=== PATIENT | male | born 1955 | race African-American/Black ===

== ENCOUNTER → 2019-06-22 | Outpatient (CLI) | payer OTHER ==
[~2019-06-22] MED LIST: REGADENOSON 0.4 MG/5 ML DISP.SYRIN. IV ONE
--- NOTE | 2019-06-22 12:31 | CARD ---
MR#: [id number] Date of Study: 06/22/2019 Ordering Physician: GLORY BROWN, Referring Physician: GLORY BROWN Tech: Mercy Cr RDCS APPROVED REPORT EXAM: Two-dimensional and M-mode echocardiogram with Doppler and color Doppler. Other Information Quality : Good Rhythm : PVC's INDICATION Hypertension/HCVD Pre-Op 2D DIMENSIONS RVDd2.7 (2.9-3.5cm)Left Atrium(2D)4.1 (1.6-4.0cm) IVSd1.2 (0.7-1.1cm)Aortic Root(2D)3.2 (2.0-3.7cm) LVDd6.0 (3.9-5.9cm)LVOT Diameter2.4 (1.8-2.4cm) PWd1.4 (0.7-1.1cm)LVDs3.4 (2.5-4.0cm) FS (%) 25.0 %SV131.6 ml LVEF(%)50.0 (>50%) Aortic Valve AoV Peak Faizan.141.0cm/sAoV VTI25.9cm AO Peak GR.8.0mmHgLVOT Peak Faizan.97.7cm/s AO Mean GR.4mmHgAVA (VMAX)3.07cm2 ELI (VTI)3.60cm2 Mitral Valve MV E Ihbwrvjq17.2cm/sMV DECEL SVEB066lk MV A Vvtuuabc147.6cm/sE/A Ratio0.7 Tricuspid Valve TR P. Polulyrf485sh/sRAP KHXBOZMW6bwCf TR Peak Gr.31muAtDOZX40phGd Pulmonary Vein S1 Pmfjmafl58.7cm/sD2 Afaqwgtk54.0cm/s LEFT VENTRICLE The Left Ventricle is mildly dilated. There is moderate concentric left ventricular hypertrophy. Left ventricle systolic function is low normal. The Ejection Fraction is 50%. Septal motion consistent wi th conduction abnormality. The lateral wall is mildly hypokinetic. Transmitral Doppler flow pattern i s Grade I-abnormal relaxation pattern. RIGHT VENTRICLE The right ventricle is normal size. The right ventricular systolic function is normal. ATRIA The left atrium is mildly dilated. The right atrium is mildly dilated. The atrial septum is aneurysma l but no shunting is noted. AORTIC VALVE The aortic valve is calcified but opens well. Doppler and Color Flow revealed no significant aortic r egurgitation. There is no significant aortic valvular stenosis. MITRAL VALVE The mitral valve is calcified but opens well. There is no evidence of mitral valve prolapse. There is no mitral valve stenosis. Doppler and Color-flow revealed trace mitral regurgitation. TRICUSPID VALVE The tricuspid valve is normal in structure and function. Doppler and Color Flow revealed trace tricus pid regurgitation. The PA pressure was estimated at 29 mmHg. There is no tricuspid valve stenosis. PULMONIC VALVE The pulmonary valve is normal in structure and function. Doppler and Color Flow revealed mild pulmoni c valvular regurgitation. There is no pulmonic valvular stenosis. GREAT VESSELS The aortic root is normal in size. The ascending aorta is normal in size. The IVC is normal in size a nd collapses >50% with inspiration. PERICARDIAL EFFUSION There is no evidence of significant pericardial effusion. Critical Notification Critical Value: No <Conclusion> There is moderate concentric left ventricular hypertrophy. Left ventricle systolic function is low normal. The Ejection Fraction is 50%. Septal motion consistent with conduction abnormality. The lateral wall is mildly hypokinetic. Signed by : Jovan Powers, Electronically Approved : 06/22/2019 12:30:58
--- NOTE | 2019-06-22 15:01 | RAD ---
MR#: [id number] Date of Study: 06/22/2019 Ordering Physician: GLORY BROWN, Referring Physician: TOBIN DEL RIO Tech: RT Marge (R) (N) APPROVED REPORT Test Type: Pharmacological Stress Nurse/Tech: Marielena Richards R.N. Test Indications: Pre op clearance, abn. EKG Cardiac History: Hypertension, smoker Medications: See Electronic Medical Record Medical History: See Electronic Medical Record Resting ECG: NSR with PAC's and PVC's Resting Heart Rate: 62 bpm Resting Blood Pressure: 167/87mmHg Pretest Chest Pain: No chest pain Nurse/Tech Notes S1S2, lungs sound clear Consent: The procedure was explained to the patient in lay terms. Informed consent was witnessed. Tu eout was entered into [employer]. History and Stress Test performed by Mona [facility] [employer]. Details Pharmacologic stress testing was performed using 0.4mg per 5ml of regadenoson given intravenously ove r 7-10 seconds. Stress Symptoms No chest pain or symptoms. POST EXERCISE Reason for Termination: Infusion complete Target HR: 131 Max HR: 103 bpm Max Blood Pressure: 171/71mmHg Blood Pressure response to exercise: Normal blood pressure response during stress. Chest Pain: No. Arrhythmia: Yes. continues to have PAC's and PVC's ST Change: No. INTERPRETATION Stress EKG Conclusion: The resting EKG showed a sinus rhythm, nonspecific ST-T wave changes and some PVCs. The stress EKG shows no significant changes from baseline. No EKG evidence of stressed induced ischemia. Imaging Protocol IMAGE PROTOCOL: Rest Tc-99m/stress Tc-99m 1 day Rest: Stress: Viability: Radiopharm.Tc99m ChxzxtdegBc46l Sestamibi Dose10.6mCi 32mCi Duration 13min. 13min. Img Date 06/22/2019 06/22/2019 Inj-Img Giil06ysl. 60min. Rest Admin Site:IV - Right AntecubitalAdministrator:RT Cal Bird)(N) Stress Admin Site: IV - Right AntecubitalAdministrator: Estrella Ellis, RT (R)(N) STRESS DATA End Diast. Vol.194.0mlLVEDV index BSA85.0ml End Syst. Vol.105.0mlLVESV index BSA46.0ml Myocardial Ovrr447.0gEject. Tdmhksdt70.0% Stress Scores Regional WT3.00Summed WT31.00 Regional WM0.00Summed WM8.00 LV Perfusion The stress scans show mild inferior wall thinning and a slight defect in the anterior septal region The rest scans show mild inferior wall thinning. Nuclear imaging shows a fixed thinning of the inferior wall. There is also a borderline reversible de fect in the anterior septal wall. Wall Motion Ventricular systolic function is mildly decreased with an ejection fraction of 46% and a mild anterio r septal wall motion abnormality LV Perf. Quant 17 Seg. SSS9.00 17 Seg. SRS5.00 17 Seg. SDS5.00 Stress Defect Extent (% LAD)6.90Rest Defect Extent (% LAD)6.90Rev. Defect Extent (% LAD)0.00 Stress Defect Extent (% LCX) 32.50Rest Defect Extent (% LCX)16.30Rev. Defect Extent (% LCX)17.50 Stress Defect Extent (% RCA)0.00Rest Defect Extent (% RCA)0.00Rev. Defect Extent (% RCA)0.00 Stress Defect Extent (% BEV)10.40Rest Defect Extent (% BEV)5.20Rev. Defect Extent (% BEV)3.70 Conclusion 1. No EKG evidence of stress-induced ischemia. 2. Mild fixed inferior wall thinning suggestive of an attenuation defect. 3. Borderline reversible defect in the anterior septal wall which may represent a small area of rever sible ischemia. 4. Mildly decreased ejection fraction of 46% with an anterior septal wall motion abnormality. 5. Moderate risk Lexiscan nuclear stress test. Signed by : Uday Gee MD Electronically Approved : 06/22/2019 15:00:58
== END | disposition home or self-care (01) ==
LOC: NM 09:48
PROVIDERS: ATTEND Internal Medicine Cardiovascular Disease
DX: Z01.810 Encounter for preprocedural cardiovascular examination (principal); I08.8 Other rheumatic multiple valve diseases; I11.9 Hypertensive heart disease without heart failure; I49.3 Ventricular premature depolarization; I49.1 Atrial premature depolarization; Z87.891 Personal history of nicotine dependence
CPT/HCPCS: 78452; 93017; 93306; A9500; J2785